=== PATIENT | female | born 1980 | race Caucasian/White ===

== ENCOUNTER 2022-06-19 17:39 | Emergency (ER) | payer SELFPAY ==
[~2022-06-19] VITALS: Ht 160 cm; Wt 63.5 kg
--- NOTE | 2022-06-19 17:50 | NUR ---
[id number] FROM URGENT CARE C/O PALPITATION, DIZZINES AND NAUSEA SINCE NOON. TO ER BED 9. ATTACHED TO MONITOR.
--- NOTE | 2022-06-19 18:20 | NUR ---
phleb at bedside for blood draw
[2022-06-19] MEDS ORDERED: DIGOXIN INJ 0.5 MG/2 ML AMPUL ONE (18:28)
[2022-06-19] MEDS: DIGOXIN INJ 0.5 MG/2 ML AMPUL IV ONE (18:37)
[2022-06-19] MEDS: IV NS 0.9% 1,000 ML BAG IV ONE (18:37)
[2022-06-19 18:40] LABS: BASOPHILS % (AUTO) 0.4 % (0.0-2.0); EOSINOPHILS % (AUTO) 0.5 % (0.0-6.0); HEMATOCRIT 30 % (33-45); LYMPHOCYTES # (AUTO) 1.5 K/uL (0.8-4.8); LYMPHOCYTES % (AUTO) 26.8 % (20.0-44.0); MEAN CORPUSCULAR HGB CONC 34 g/dl (31.0-36.0); MEAN CORPUSCULAR VOLUME 84 fL (82-100); MONOCYTES # (AUTO) 0.7 K/uL (0.1-1.30); MONOCYTES % (AUTO) 11.6 % (2.0-12.0); NEUTROPHILS # (AUTO) 3.4 K/uL (1.8-8.9); NEUTROPHILS % (AUTO) 60.7 % (43.0-81.0); PLATELET COUNT (AUTO) 255 K/uL (150-450); RED BLOOD CELL COUNT(AUTO) 3.53 MIL/uL (4.0-5.2); WHITE BLOOD COUNT (AUTO) 5.7 K/uL (4.3-11.0)
[2022-06-19 18:46] LABS: D-DIMER 0.47 mg/L(FEU (0.17-0.50)
[2022-06-19 18:54] LABS: CALCIUM, SERUM 8.4 mg/dL (8.5-10.1); CARBON DIOXIDE 23 mmol/L (21-32); CREATININE 0.7 mg/dL (0.6-1.3); GLUCOSE 110 mg/dL (74-106); UREA NITROGEN, BLOOD 15 mg/dL (7-18)
[2022-06-19 19:00] LABS: CHLORIDE 99 mmol/L (98-107); POTASSIUM 3.6 mmol/L (3.5-5.1); SODIUM SERUM 136 mmol/L (136-145)
[2022-06-19] MEDS ORDERED: DILTIAZEM HCL 25 MG IV ONE (19:21)
[2022-06-19] MEDS: DILTIAZEM HCL 50 MG IV IV ONE (19:25)
[2022-06-19] MEDS ORDERED: ONDANSETRON HCL/PF 4 MG/2 ML VIAL ONE (19:42)
[2022-06-19] MEDS: ONDANSETRON HCL/PF 4 MG/2 ML VIAL IV ONE (19:46)
[2022-06-19] MEDS ORDERED: DIGO125T PO (20:54)
--- NOTE | 2022-06-19 21:22 | NUR ---
Patient discharged to home in stable condition. Written and verbal after care instructions given. Patient verbalizes understanding of instruction.IV removed. Catheter intact and site benign. Pressure and 4x4 applied to site. No bleeding noted.
[2022-06-19 22:01] VITALS: BP 122/66
== END 2022-06-19 21:22 | disposition home or self-care (01) ==
LOC: ER 17:44
DX: I48.91 Unspecified atrial fibrillation (principal)
CPT/HCPCS: 99285; 96374; 71045; 96375; 96361; 93005 ×4; 85025; 80048; 85378; 36415; 84484 ×2; 85730; J3490; J1160; J2405; J7030